=== PATIENT | female | born 1955 | race Caucasian/White ===

== ENCOUNTER 2016-09-07 11:20 | Emergency (ER) | payer MEDICAID ==
[~2016-09-07] VITALS: Ht 167.6 cm; Wt 90.7 kg
[~2016-09-07 11:20] MED LIST: LISI20TA PO; NIFE60TA7 PO; RANITIDINE
[2016-09-07 11:36] VITALS: BP 120/70; PULSE 104; RESP 18; TEMP 98.1; O2SAT 96
[2016-09-07 12:43] LABS: BASOPHILS # (AUTO) 0.1 K/uL (0.0-0.2); BASOPHILS % (AUTO) 0.8 % (0.0-2.0); EOSINOPHILS # (AUTO) 0.3 K/uL (0.0-0.4); EOSINOPHILS % (AUTO) 2.1 % (0.0-4.0); HEMATOCRIT 44.3 % (36-48); HEMOGLOBIN 14.5 g/dL (12.0-16.0); LYMPHOCYTES # (AUTO) 3.3 K/uL (1.0-5.5); LYMPHOCYTES % (AUTO) 25.8 % (20.5-51.5); MEAN CORPUSCULAR HEMOGLOBIN 28 pg (27-31); MEAN CORPUSCULAR HGB CONC 33 % (32-36); MEAN CORPUSCULAR VOLUME 85 fL (79.0-98.0); MONOCYTES # (AUTO) 0.7 K/uL (0.0-1.0); MONOCYTES % (AUTO) 5.2 % (1.7-9.3); NEUTROPHILS # (AUTO) 8.5 K/uL (1.8-7.7); NEUTROPHILS % (AUTO) 66.1 % (40.0-70.0); PLATELET COUNT (AUTO) 402 K/uL (130-430); RED BLOOD CELL COUNT(AUTO) 5.24 MIL/uL (4.2-6.2); RED CELL DISTRIBUTION WIDTH 12.6 % (9.0-15.0); WHITE BLOOD COUNT (AUTO) 12.9 K/uL (4.8-10.8)
[2016-09-07 12:54] LABS: CREATININE 1.11 mg/dL (0.55-1.30)
[2016-09-07 12:58] LABS: ALBUMIN 3.7 g/dL (3.4-4.8); TOTAL BILIRUBIN 0.2 mg/dL (0.0-1.0); TOTAL PROTEIN, SERUM 7.7 g/dL (6.4-8.3)
[2016-09-07 12:59] LABS: INR 0.9 (0.8-1.2); PROTHROMBIN TIME 10.1 SECS (9.5-12.5)
[2016-09-07 13:05] LABS: BILIRUBIN,URINE NEGATIVE (NEGATIVE); BLOOD, URINE NEGATIVE (NEGATIVE); CLARITY/URINE HAZY (CLEAR); COLOR,URINE YELLOW (YELLOW); GLUCOSE,URINE NEGATIVE (NEGATIVE); KETONES,URINE NEGATIVE (NEGATIVE); LEUKOCYTE ESTERASE ,URINE NEGATIVE (NEGATIVE); NITRITE, URINE POSITIVE (NEGATIVE); PH,URINE 5.5 (5.0-8.0); PROTEIN URINE NEGATIVE (NEGATIVE); UROBILINOGEN,URINE 0.2 (0.2-1.0)
[2016-09-07] MEDS ORDERED: ONDANSETRON HCL 4 MG/2 ML VIAL IVP ONE (13:15)
[2016-09-07] MEDS ORDERED: HYDROmorphone 1 MG INJ. 1 MG/ML AMPUL IVP ONE (13:15)
[2016-09-07 13:18] LABS: BACTERIA,URINE MANY /HPF (None Seen); RBC,URINE NONE SEEN /HPF (0-3); WBC,URINE 0-3 /HPF (0-3)
--- NOTE | 2016-09-07 13:30 | NUR ---
Patient in stable condition, alert and oriented x4. States has had lower back pain since 09/03/2016 with a cough. No cough noted at this time. Patient denies any burning with urination, hematuria, urinary frequency or retention. Denies any injury/trauma. No deformites noted. No other complaints/injuries per patient or noted.
[2016-09-07] MEDS ORDERED: DIPHENHYDRAMINE HCL 50 MG CAPSULE ONE (13:54)
[2016-09-07] MEDS ORDERED: DIPHENHYDRAMINE INJ 50 MG/ML VIAL ONE (13:56)
--- NOTE | 2016-09-07 13:58 | NUR ---
Patient states is itchy, medication to be administered per MD order.
[2016-09-07] MEDS ORDERED: DIPHENHYDRAMINE INJ 50 MG/ML VIAL IVP ONE (14:00)
--- NOTE | 2016-09-07 14:12 | NUR ---
Patient states felt some chest tightness when sitting up, no shortness of breath noted, breathing unlabored, no chest pain, pressure or radiating pain per patient. EKG performed per MD order, given to MD for evaluation. Addendum: 09/07/16 at [address] Farfan reexamined patient at bedside.
[2016-09-07] MEDS ORDERED: methylPREDNISolone SOD SUCC/PF 62.5 MG/ML VIAL IVP ONE (14:15)
[2016-09-07] MEDS ORDERED: LEVOFLOXACIN 500 MG/D5W 100 ML IV ONE (14:15)
--- NOTE | 2016-09-07 15:00 | NUR ---
Patient in stable condition, denies itchiness or chest tightness. No other complaints per patient or noted.
[2016-09-07] MEDS ORDERED: KETOROLAC TROMETHAMINE 30 MG VIAL IVP ONE (16:00)
[2016-09-07 16:27] VITALS: BP 110/81; PULSE 75; RESP 18; TEMP 97.2; O2SAT 96
--- NOTE | 2016-09-07 16:27 | NUR ---
Patient given written and verbal discharge instructions and verbalizes understanding. ER MD discussed with patient the results and treatment provided. Patient in stable condition. ID arm band removed. IV catheter removed intact and dressing applied, no active bleeding. Rx of Cipro, Mortrin and Ultram given. Patient educated on pain management and to follow up with PMD in 2 days. Pain Scale 0/10. Opportunity for questions provided and answered.
--- NOTE | 2016-09-09 10:04 | NUR ---
RECEIVED FINAL URINE CULTURES. PT WAS GIVEN PRESCRIPTION FOR CIPRO TO WHICH PT IS SENSITIVE TO. NO FURTHER ACTIONS NEEDED
== END 2016-09-07 16:27 | disposition home or self-care (01) ==
LOC: SED 11:20
DX: N39.0 Urinary tract infection, site not specified (principal); K21.9 Gastro-esophageal reflux disease without esophagitis; I10 Essential (primary) hypertension; Z88.0 Allergy status to penicillin; Z88.5 Allergy status to narcotic agent; Z91.040 Latex allergy status
CPT/HCPCS: 36415; 71010; 74176; 80053; 81000; 83605; 83690; 85025; 85610; 87040; 87086; 87186; 93005; 96365; 96375; 99285; J1170; J1200; J1885; J1956; J2405; J2930; Q0163

== ENCOUNTER 2017-12-06 22:28 | Emergency (ER) | payer MEDICAID ==
[~2017-12-06] VITALS: Ht 170.2 cm; Wt 80.7 kg
[2017-12-06 22:44] VITALS: BP_SYST 119
[2017-12-06 23:14] VITALS: BP_SYST 121
== END 2017-12-06 23:14 | disposition home or self-care (01) ==
LOC: SED 22:28
DX: H66.91 Otitis media, unspecified, right ear (principal); I10 Essential (primary) hypertension; K21.9 Gastro-esophageal reflux disease without esophagitis; Z88.0 Allergy status to penicillin; Z91.040 Latex allergy status; Z88.5 Allergy status to narcotic agent; Z91.048 Other nonmedicinal substance allergy status
CPT/HCPCS: 99283